=== PATIENT | male | born 1965 | race Caucasian/White ===

== ENCOUNTER 2022-11-10 17:03 | Inpatient (IN) | payer BC, OTHER ==
[2022-11-10 18:04] VITALS: BMI 25.8
[2022-11-10] MEDS ORDERED: DICYCLOMINE HCL 10 MG CAPSULE PO PRN (18:38)
[2022-11-10] MEDS ORDERED: BENZONATATE 200 MG CAPSULE PO PRN (18:38)
[2022-11-10] MEDS ORDERED: MAG HYDROX/AL HYDROX/SIMETH 30 ML UNIT-DOSE CUP PO PRN (18:38)
[2022-11-10] MEDS ORDERED: ACETAMINOPHEN 325 MG TABLET (FP) PO PRN (18:38)
[2022-11-10] MEDS ORDERED: POLYETHYLENE GLYCOL (HEALTHYLAX) 3350 17 GM PACKET PO PRN (18:38)
[2022-11-10] MEDS ORDERED: IBUPROFEN 400 MG TABLET (FP) PO PRN (18:38)
[2022-11-10] MEDS ORDERED: MAGNESIUM HYDROX 2400MG/30ML ORAL SUSPENSION 30 ML CUP PO PRN (18:38)
[2022-11-10] MEDS ORDERED: guaiFENesin 600 MG TABLET.ER (FP) PO PRN (18:38)
[2022-11-10] MEDS ORDERED: P-EPHED 60MG/TRIPROLIDI 2.5MG TABLET PO PRN (18:38)
[2022-11-10] MEDS ORDERED: IBUPROFEN 600 MG TABLET (FP) PO PRN (18:38)
[2022-11-10] MEDS ORDERED: BISMUTH SUBSALICYLATE 524 MG/30 ML PO PRN (18:38)
[2022-11-10] MEDS ORDERED: BENZOCAINE/MENTHOL (CHLORASEPTIC ) LOZENGE MM PRN (18:38)
[2022-11-10] MEDS ORDERED: LOPERAMIDE HCL 2 MG CAPSULE PO PRN (18:38)
[2022-11-10] MEDS ORDERED: ONDANSETRON *ODT* 4 MG TABLET SL PRN (18:38)
[2022-11-10] MEDS ORDERED: MELATONIN 5 MG TABLETS PO PRN (18:38)
[2022-11-10] MEDS ORDERED: chlordiazePOXIDE HCL 25 MG CAPSULE PO PRN (18:41)
[2022-11-10] MEDS ORDERED: chlordiazePOXIDE HCL 25 MG CAPSULE ONE (19:10)
[2022-11-10] MEDS ORDERED: LORazepam 2 MG/ML SDV VIAL IM ONE (21:07)
[2022-11-10] MEDS: chlordiazePOXIDE HCL 25 MG CAPSULE PO SCH (22:13)
[2022-11-10] MEDS: THIAMINE HCL 100 MG TABLET (FP) PO SCH (22:13)
[2022-11-11 05:49] VITALS: RESP 17
[2022-11-11] MEDS: chlordiazePOXIDE HCL 25 MG CAPSULE PO SCH ×4 (05:55→22:50)
[2022-11-11] MEDS ORDERED: PRENATAL VITAMINS W/ FOLIC ACID TABLET (FP) PO SCH (10:00)
[2022-11-11 12:01] LABS: CHLORIDE 95 mmol/L (98-107); SODIUM 142 mmol/L (136-145)
[2022-11-11 12:05] LABS: HEMATOCRIT 39.8 % (35.4-49); HEMOGLOBIN 13.9 GM/dL (11.7-16.9); MCH 34.2 pg (25.7-33.7); MEAN CELL VOLUME 97.9 fl (80-96); RBC 4.06 M/mm3 (4.00-5.60); RDW 13.8 % (11.9-15.9)
[2022-11-11 12:09] LABS: MEAN PLT VOLUME 7.1 fl (7.5-11.1)
[2022-11-11 12:27] LABS: ALBUMIN 3.2 g/dl (3.4-5.0); BLOOD UREA NITROGEN 12.6 mg/dL (7-18); CALCIUM 8.6 mg/dL (8.5-10.1); CO2 39 mmol/L (21-32); GLUCOSE,RANDOM 87 mg/dL (74-106)
[2022-11-11 12:30] LABS: SGPT/ALT 70 U/L (13-61)
[2022-11-11 12:31] LABS: CREATININE 0.6 mg/dL (0.55-1.3); SGOT/AST 194 U/L (15-37)
[2022-11-11 12:32] LABS: BILIRUBIN,TOTAL 2.1 mg/dL (0.2-1); TOT PROT 6.5 g/dl (6.4-8.2)
[2022-11-11 12:33] LABS: ALK PHOS 134 U/L (45-117)
[2022-11-11 12:52] VITALS: BP 154/81; PULSE 88; TEMP 96.8
[2022-11-11 12:54] LABS: ANION GAP 9 MMOL/L (8-16)
[2022-11-11] MEDS ORDERED: POTASSIUM CHLORIDE ORAL LIQUID 20 MEQ/15 ML PO ONE (13:35)
[2022-11-11 13:56] LABS: PLATELET COUNT 20 10^3/uL (134-434)
[2022-11-11] MEDS: LACTULOSE 20 GM/30 ML UDC (FOR ORAL USE ONLY) PO SCH ×3 (14:09→22:50)
[2022-11-11] MEDS ORDERED: POTASSIUM CHLORIDE ORAL LIQUID 20 MEQ/15 ML PO SCH (22:00)
[2022-11-11] MEDS: THIAMINE HCL 100 MG TABLET (FP) PO SCH (22:50)
[2022-11-12] MEDS ORDERED: chlordiazePOXIDE HCL 25 MG CAPSULE PO SCH (05:00)
[2022-11-13] MEDS ORDERED: chlordiazePOXIDE HCL 10 MG CAPSULE PO PRN
[2022-11-13] MEDS ORDERED: chlordiazePOXIDE HCL 10 MG CAPSULE PO SCH (05:00)
[2022-11-14] MEDS ORDERED: chlordiazePOXIDE HCL 10 MG CAPSULE PO SCH (05:00)
[2022-11-15] MEDS ORDERED: chlordiazePOXIDE HCL 10 MG CAPSULE PO ONE (05:00)
== END 2022-11-12 02:04 | disposition short-term general hospital (02) | DRG 775 ==
LOC: YASAS 17:03 → Y3N 19:25 → Y6N 19:35
PROVIDERS: ADMIT Allergy & Immunology; ATTEND Surgery
PROC: HZ2ZZZZ Detoxification Services for Substance Abuse Treatment (ICD-10-PCS; principal; 2022-11-10)
DX: F10.230 Alcohol dependence with withdrawal, uncomplicated (principal); F17.210 Nicotine dependence, cigarettes, uncomplicated; F10.282 Alcohol dependence with alcohol-induced sleep disorder; D69.6 Thrombocytopenia, unspecified; E87.6 Hypokalemia; R41.82 Altered mental status, unspecified
CPT/HCPCS: 36415; 80053; 82140; 82962; 85027; 86780; 87811; C9803-CS; U0003; U0005

== ENCOUNTER 2022-11-11 15:36 | Inpatient (IN) | payer BC, OTHER ==
[2022-11-11 15:47] VITALS: BMI 25.8
[2022-11-11] MEDS ORDERED: LACTATED RINGERS SOLUTION 1000 ML INFUS.BAG IV ONE (16:08)
[2022-11-11] MEDS ORDERED: KCL 10 MEQ IVPB 30 MEQ/300 ML INFUS.BAG IVPB ONE (16:30)
[2022-11-11] MEDS: KCL 10 MEQ IVPB 10 MEQ/100 ML INFUS.BAG IVPB SCH ×3 (16:50→18:22)
[2022-11-11 17:23] LABS: BASO % 0.9 % (0-2.0); EOS % 0.8 % (0-4.5); HEMATOCRIT 42.1 % (35.4-49); HEMOGLOBIN 14.9 GM/dL (11.7-16.9); LYMPH % 11.1 % (8-40); MCH 34.4 pg (25.7-33.7); MCHC 35.4 g/dl (32.0-35.9); MEAN PLT VOLUME 7.9 fl (7.5-11.1); NEUT % 75.2 % (42.8-82.8); RBC 4.34 M/mm3 (4.00-5.60); RDW 13.6 % (11.9-15.9); WHITE BLOOD COUNT 4.1 K/mm3 (4.0-10.0)
[2022-11-11 17:24] LABS: INR 1.24 (0.83-1.09); PROTHROMBIN TIME (PATIENT) 14.4 SEC (9.7-13.0)
[2022-11-11 17:26] LABS: PLATELET COUNT 24 10^3/uL (134-434)
[2022-11-11 17:27] LABS: ACTIVATED PTT 31.9 SECONDS (25.2-36.5)
[2022-11-11 18:04] LABS: CHLORIDE 96 mmol/L (98-107); SODIUM 139 mmol/L (136-145)
[2022-11-11 18:06] LABS: ALBUMIN 3.4 g/dl (3.4-5.0); ANION GAP 6 MMOL/L (8-16); CALCIUM 8.8 mg/dL (8.5-10.1); CO2 37 mmol/L (21-32); GLUCOSE,RANDOM 148 mg/dL (74-106)
[2022-11-11 18:07] LABS: MAGNESIUM 1.1 mg/dL (1.8-2.4)
[2022-11-11 18:09] LABS: CREATININE 0.6 mg/dL (0.55-1.3); PHOSPHOROUS 2.5 mg/dL (2.5-4.9); SGOT/AST 259 U/L (15-37); SGPT/ALT 82 U/L (13-61)
[2022-11-11 18:11] LABS: BILIRUBIN,TOTAL 3.1 mg/dL (0.2-1); TOT PROT 6.8 g/dl (6.4-8.2)
[2022-11-11 18:12] LABS: ALK PHOS 149 U/L (45-117)
[2022-11-11] MEDS ORDERED: MAGNESIUM SULF 50% (8.12 MEQ/2 ML-1 GM VIAL) IVPB ONE ×2 (18:32→21:11)
[2022-11-11] MEDS ORDERED: MAGNESIUM SULFATE IN WATER 2 GM/50 ML IVPB IVPB ONE (18:40)
[2022-11-11 21:22] LABS: EPI CELLS 2 /uL (0-25.1); HYALINE CASTS 0 /uL (0-3.1); PH,URINE >= 9.0 (5.0-8.0); URINE APPEARANCE CLEAR; URINE BACTERIA 5 /uL (0-1359); URINE BILIRUBIN 1+ (NEGATIVE); URINE COLOR DK YELLOW; URINE GLUCOSE (UA) NEGATIVE (NEGATIVE); URINE KETONE NEGATIVE (NEGATIVE); URINE LEUK ESTERASE NEGATIVE (NEGATIVE); URINE NITRITE NEGATIVE (NEGATIVE); URINE PROTEIN 2+ (NEGATIVE); URINE RBC 25 /uL (0-23.9); URINE UROBILINOGEN 4.0 E.U/dl mg/dL (0.2-1.0); URINE WBC 5 /uL (0-25.8)
[2022-11-11] MEDS ORDERED: FOLIC ACID 1 MG TABLET (FP) PO SCH (22:00)
[2022-11-11] MEDS ORDERED: FOLIC ACID INJECTION - 1 MG, THIAMINE HCL 100 MG, MULTIVIT INJECTION ADULT 10 ML in SOD... IVPB ONE (22:00)
[2022-11-11] MEDS ORDERED: CYANOCOBALAMIN 1,000 MCG TABLET (FP) PO SCH (22:00)
[2022-11-11] MEDS: THIAMINE HCL 200 MG/2 ML VIAL IVPB SCH (22:49)
[2022-11-11] MEDS: LORazepam 1 MG TABLET PO PRN (22:49)
[2022-11-11] MEDS: MELATONIN 5 MG TABLETS PO PRN (22:49)
[2022-11-12] MEDS: THIAMINE HCL 200 MG/2 ML VIAL IVPB SCH ×2 (10:06→19:00)
[2022-11-12] MEDS: FOLIC ACID 1 MG TABLET (FP) PO SCH (10:07)
[2022-11-12] MEDS: CYANOCOBALAMIN 1,000 MCG TABLET (FP) PO SCH (10:07)
[2022-11-12 10:23] LABS: EOS % 1.3 % (0-4.5); HEMATOCRIT 41.4 % (35.4-49); HEMOGLOBIN 14.7 GM/dL (11.7-16.9); MCH 34.4 pg (25.7-33.7); MCHC 35.5 g/dl (32.0-35.9); MEAN PLT VOLUME 7.9 fl (7.5-11.1); NEUT % 71.7 % (42.8-82.8); RBC 4.26 M/mm3 (4.00-5.60); RDW 13.5 % (11.9-15.9); WHITE BLOOD COUNT 4.4 K/mm3 (4.0-10.0)
[2022-11-12 10:33] LABS: INR 1.35 (0.83-1.09); PROTHROMBIN TIME (PATIENT) 15.6 SEC (9.7-13.0)
[2022-11-12 10:35] LABS: PLATELET COUNT 19 10^3/uL (134-434)
[2022-11-12 11:03] LABS: CHLORIDE 96 mmol/L (98-107); SODIUM 139 mmol/L (136-145)
[2022-11-12 11:05] LABS: BLOOD UREA NITROGEN 6.3 mg/dL (7-18); CALCIUM 8.9 mg/dL (8.5-10.1); CO2 34 mmol/L (21-32); GLUCOSE,RANDOM 98 mg/dL (74-106); MAGNESIUM 1.4 mg/dL (1.8-2.4)
[2022-11-12 11:06] LABS: ALBUMIN 3.3 g/dl (3.4-5.0)
[2022-11-12 11:08] LABS: BILIRUBIN,DIRECT 1.8 mg/dL (0.0-0.2); CREATININE 0.5 mg/dL (0.55-1.3); PHOSPHOROUS 2.1 mg/dL (2.5-4.9); SGOT/AST 178 U/L (15-37); SGPT/ALT 74 U/L (13-61)
[2022-11-12 11:10] LABS: BILIRUBIN,TOTAL 4.4 mg/dL (0.2-1); TOT PROT 6.8 g/dl (6.4-8.2)
[2022-11-12 11:11] LABS: ALK PHOS 150 U/L (45-117)
[2022-11-12 11:13] LABS: ANION GAP 9 MMOL/L (8-16)
[2022-11-12 11:19] LABS: ANISOCYTOSIS 0; MACROCYTOSIS 0; PLATELET ESTIMATE DECREASED
[2022-11-12] MEDS ORDERED: MAGNESIUM 2GM/50ML STERILE WATER IVPB IVPB ONE (11:23)
[2022-11-12] MEDS: POTASSIUM CHLORIDE ORAL LIQUID 20 MEQ/15 ML PO SCH ×2 (11:55→21:22)
[2022-11-12] MEDS: LORazepam 1 MG TABLET PO PRN ×2 (13:28→21:20)
[2022-11-12] MEDS: NAPH,MB-DB/K PH,MBDB POWDER PACKET PO SCH ×2 (15:26→21:22)
[2022-11-12 16:23] LABS: VENOUS BASE EXCESS 7.6 mmol/L (-2-2); VENOUS PCO2 37.3 mmHg (38-52); VENOUS PH 7.532 (7.310-7.410)
[2022-11-12] MEDS: MELATONIN 5 MG TABLETS PO PRN (21:20)
[2022-11-12] MEDS ORDERED: LORazepam 2 MG/ML SDV VIAL IVPUSH ONE (22:26)
[2022-11-13] MEDS ORDERED: HALOPERIDOL LACTATE 5 MG/ML IM ONE (00:43)
[2022-11-13] MEDS ORDERED: LORazepam 2 MG/ML SDV VIAL IVPUSH SCH (00:45)
[2022-11-13] MEDS ORDERED: LORazepam 2 MG/ML SDV VIAL IVPUSH PRN (01:23)
[2022-11-13] MEDS: THIAMINE HCL 200 MG/2 ML VIAL IVPB SCH ×2 (02:49→11:13)
[2022-11-13] MEDS ORDERED: LORazepam 2 MG/ML SDV VIAL IM ONE (04:28)
[2022-11-13] MEDS: NAPH,MB-DB/K PH,MBDB POWDER PACKET PO SCH ×3 (05:37→22:51)
[2022-11-13 08:48] LABS: INR 1.37 (0.83-1.09); PROTHROMBIN TIME (PATIENT) 15.8 SEC (9.7-13.0)
[2022-11-13 08:49] LABS: ACTIVATED PTT 32.3 SECONDS (25.2-36.5)
[2022-11-13 08:53] LABS: CALCIUM 9.1 mg/dL (8.5-10.1)
[2022-11-13 08:54] LABS: ALBUMIN 3.6 g/dl (3.4-5.0); BLOOD UREA NITROGEN 11.1 mg/dL (7-18); MAGNESIUM 1.3 mg/dL (1.8-2.4)
[2022-11-13 08:56] LABS: CALCIUM 9.1 mg/dL (8.5-10.1)
[2022-11-13 08:57] LABS: ALBUMIN 3.6 g/dl (3.4-5.0); BLOOD UREA NITROGEN 10.8 mg/dL (7-18); CREATININE 0.6 mg/dL (0.55-1.3); PHOSPHOROUS 2.7 mg/dL (2.5-4.9)
[2022-11-13 08:59] LABS: BILIRUBIN,TOTAL 3.8 mg/dL (0.2-1); TOT PROT 7.3 g/dl (6.4-8.2)
[2022-11-13 09:00] LABS: CREATININE 0.6 mg/dL (0.55-1.3)
[2022-11-13 09:01] LABS: BILIRUBIN,TOTAL 3.9 mg/dL (0.2-1); TOT PROT 7.4 g/dl (6.4-8.2)
[2022-11-13 09:09] LABS: HEMOGLOBIN 15.7 GM/dL (11.7-16.9); MCH 34.8 pg (25.7-33.7); MCHC 35.7 g/dl (32.0-35.9); MEAN CELL VOLUME 97.5 fl (80-96); MEAN PLT VOLUME 8.7 fl (7.5-11.1); RBC 4.52 M/mm3 (4.00-5.60); RDW 13.5 % (11.9-15.9); WHITE BLOOD COUNT 6.6 K/mm3 (4.0-10.0)
[2022-11-13 09:22] LABS: PLATELET COUNT 26 10^3/uL (134-434)
[2022-11-13] MEDS ORDERED: MAGNESIUM SULF 50% (8.12 MEQ/2 ML-1 GM VIAL) IVPB ONE ×3 (10:30→15:00)
[2022-11-13] MEDS ORDERED: POTASSIUM CHLORIDE TABS 20 MEQ TABLET.ER (FP) PO SCH (10:30)
[2022-11-13] MEDS: FOLIC ACID 1 MG TABLET (FP) PO SCH (11:13)
[2022-11-13] MEDS: POTASSIUM CHLORIDE ORAL LIQUID 20 MEQ/15 ML PO SCH ×2 (11:15→22:50)
[2022-11-13] MEDS: CYANOCOBALAMIN 1,000 MCG TABLET (FP) PO SCH (13:05)
[2022-11-13] MEDS ORDERED: LORazepam 2 MG/ML SDV VIAL IVPUSH ONE ×2 (16:11→22:04)
[2022-11-13] MEDS: MELATONIN 5 MG TABLETS PO PRN (22:55)
[2022-11-14] MEDS: THIAMINE HCL 200 MG/2 ML VIAL IVPB SCH ×2 (02:55→09:11)
[2022-11-14] MEDS: NAPH,MB-DB/K PH,MBDB POWDER PACKET PO SCH ×3 (06:22→22:26)
[2022-11-14 08:50] LABS: INR 1.32 (0.83-1.09); PROTHROMBIN TIME (PATIENT) 15.3 SEC (9.7-13.0)
[2022-11-14 08:52] LABS: HEMATOCRIT 42.5 % (35.4-49); HEMOGLOBIN 14.6 GM/dL (11.7-16.9); MCH 33.7 pg (25.7-33.7); MCHC 34.4 g/dl (32.0-35.9); MEAN CELL VOLUME 98.2 fl (80-96); MEAN PLT VOLUME 8.1 fl (7.5-11.1); RBC 4.32 M/mm3 (4.00-5.60); RDW 13.7 % (11.9-15.9); WHITE BLOOD COUNT 6.8 K/mm3 (4.0-10.0)
[2022-11-14 09:09] LABS: CALCIUM 9.1 mg/dL (8.5-10.1)
[2022-11-14 09:10] LABS: ALBUMIN 3.4 g/dl (3.4-5.0); BLOOD UREA NITROGEN 13.6 mg/dL (7-18); MAGNESIUM 1.9 mg/dL (1.8-2.4)
[2022-11-14] MEDS: POTASSIUM CHLORIDE ORAL LIQUID 20 MEQ/15 ML PO SCH ×2 (09:10→22:26)
[2022-11-14] MEDS: FOLIC ACID 1 MG TABLET (FP) PO SCH (09:11)
[2022-11-14] MEDS: CYANOCOBALAMIN 1,000 MCG TABLET (FP) PO SCH (09:11)
[2022-11-14 09:13] LABS: CREATININE 0.5 mg/dL (0.55-1.3)
[2022-11-14 09:14] LABS: BILIRUBIN,TOTAL 3.2 mg/dL (0.2-1); TOT PROT 6.9 g/dl (6.4-8.2)
[2022-11-14 09:20] LABS: PLATELET COUNT 36 10^3/uL (134-434)
[2022-11-14 18:22] LABS: HEMATOCRIT 42.5 % (35.4-49); HEMOGLOBIN 14.4 GM/dL (11.7-16.9); MCH 33.2 pg (25.7-33.7); MCHC 33.8 g/dl (32.0-35.9); MEAN CELL VOLUME 98.4 fl (80-96); MEAN PLT VOLUME 8.4 fl (7.5-11.1); PLATELET COUNT 47 10^3/uL (134-434); RBC 4.32 M/mm3 (4.00-5.60); RDW 13.9 % (11.9-15.9); WHITE BLOOD COUNT 6.8 K/mm3 (4.0-10.0)
[2022-11-14] MEDS ORDERED: LORazepam 2 MG/ML SDV VIAL IVPUSH ONE (22:09)
[2022-11-14] MEDS ORDERED: HALOPERIDOL LACTATE 5 MG/ML IM ONE (23:26)
[2022-11-15] MEDS ORDERED: LORazepam 2 MG/ML SDV VIAL IVPUSH ONE (01:14)
[2022-11-15] MEDS: NAPH,MB-DB/K PH,MBDB POWDER PACKET PO SCH ×3 (06:07→21:25)
[2022-11-15] MEDS ORDERED: LORazepam 1 MG TABLET PO PRN (07:28)
[2022-11-15 09:17] LABS: HEMATOCRIT 42.1 % (35.4-49); HEMOGLOBIN 14.7 GM/dL (11.7-16.9); MCH 34.1 pg (25.7-33.7); MCHC 34.9 g/dl (32.0-35.9); MEAN CELL VOLUME 97.8 fl (80-96); MEAN PLT VOLUME 7.8 fl (7.5-11.1); PLATELET COUNT 53 10^3/uL (134-434); RBC 4.31 M/mm3 (4.00-5.60); RDW 13.6 % (11.9-15.9); WHITE BLOOD COUNT 6.2 K/mm3 (4.0-10.0)
[2022-11-15 09:23] LABS: INR 1.36 (0.83-1.09); PROTHROMBIN TIME (PATIENT) 15.7 SEC (9.7-13.0)
[2022-11-15 09:26] LABS: ACTIVATED PTT 32.9 SECONDS (25.2-36.5)
[2022-11-15 09:37] LABS: ALBUMIN 3.3 g/dl (3.4-5.0); BLOOD UREA NITROGEN 15.2 mg/dL (7-18)
[2022-11-15 09:40] LABS: CREATININE 0.5 mg/dL (0.55-1.3); MAGNESIUM 1.5 mg/dL (1.8-2.4); PHOSPHOROUS 3.4 mg/dL (2.5-4.9)
[2022-11-15 09:42] LABS: BILIRUBIN,TOTAL 3.5 mg/dL (0.2-1)
[2022-11-15] MEDS: POTASSIUM CHLORIDE ORAL LIQUID 20 MEQ/15 ML PO SCH ×2 (10:02→21:25)
[2022-11-15] MEDS: CYANOCOBALAMIN 1,000 MCG TABLET (FP) PO SCH (10:02)
[2022-11-15] MEDS: FOLIC ACID 1 MG TABLET (FP) PO SCH (10:02)
[2022-11-15] MEDS ORDERED: MAGNESIUM SULF 50% (8.12 MEQ/2 ML-1 GM VIAL) IVPB ONE (10:19)
[2022-11-15] MEDS: THIAMINE HCL 200 MG/2 ML VIAL IVPB SCH ×3 (10:25→22:40)
[2022-11-16] MEDS: NAPH,MB-DB/K PH,MBDB POWDER PACKET PO SCH ×3 (05:34→21:30)
[2022-11-16 08:37] LABS: INR 1.33 (0.83-1.09); PROTHROMBIN TIME (PATIENT) 15.4 SEC (9.7-13.0)
[2022-11-16 08:38] LABS: HEMATOCRIT 40.2 % (35.4-49); HEMOGLOBIN 14.2 GM/dL (11.7-16.9); MCH 34.5 pg (25.7-33.7); MCHC 35.4 g/dl (32.0-35.9); MEAN CELL VOLUME 97.4 fl (80-96); MEAN PLT VOLUME 8.2 fl (7.5-11.1); PLATELET COUNT 70 10^3/uL (134-434); RBC 4.12 M/mm3 (4.00-5.60); RDW 13.8 % (11.9-15.9); WHITE BLOOD COUNT 5.9 K/mm3 (4.0-10.0)
[2022-11-16] MEDS: THIAMINE HCL 200 MG/2 ML VIAL IVPB SCH (09:22)
[2022-11-16] MEDS: POTASSIUM CHLORIDE ORAL LIQUID 20 MEQ/15 ML PO SCH ×2 (09:24→21:30)
[2022-11-16] MEDS: FOLIC ACID 1 MG TABLET (FP) PO SCH (09:24)
[2022-11-16] MEDS: CYANOCOBALAMIN 1,000 MCG TABLET (FP) PO SCH (09:24)
[2022-11-16 09:29] LABS: CALCIUM 8.6 mg/dL (8.5-10.1)
[2022-11-16 09:30] LABS: ALBUMIN 3.2 g/dl (3.4-5.0); BLOOD UREA NITROGEN 11.8 mg/dL (7-18); MAGNESIUM 1.8 mg/dL (1.8-2.4)
[2022-11-16 09:33] LABS: CREATININE 0.6 mg/dL (0.55-1.3); PHOSPHOROUS 4.1 mg/dL (2.5-4.9)
[2022-11-16 09:35] LABS: TOT PROT 6.7 g/dl (6.4-8.2)
[2022-11-16] MEDS ORDERED: LORazepam 0.5 MG TABLET PO PRN (13:29)
[2022-11-17] MEDS ORDERED: LORazepam 1 MG TABLET PO SCH (05:00)
[2022-11-17] MEDS: NAPH,MB-DB/K PH,MBDB POWDER PACKET PO SCH ×3 (06:37→21:49)
[2022-11-17] MEDS: FOLIC ACID 1 MG TABLET (FP) PO SCH (09:19)
[2022-11-17] MEDS: POTASSIUM CHLORIDE ORAL LIQUID 20 MEQ/15 ML PO SCH ×2 (09:19→21:48)
[2022-11-17] MEDS: THIAMINE HCL 200 MG/2 ML VIAL IVPB SCH (09:19)
[2022-11-17] MEDS: CYANOCOBALAMIN 1,000 MCG TABLET (FP) PO SCH (09:19)
[2022-11-17 09:44] LABS: HEMATOCRIT 41.5 % (35.4-49); HEMOGLOBIN 14.3 GM/dL (11.7-16.9); MCHC 34.5 g/dl (32.0-35.9); MEAN CELL VOLUME 98.5 fl (80-96); MEAN PLT VOLUME 8.3 fl (7.5-11.1); PLATELET COUNT 96 10^3/uL (134-434); RBC 4.22 M/mm3 (4.00-5.60); RDW 13.3 % (11.9-15.9); WHITE BLOOD COUNT 5.4 K/mm3 (4.0-10.0)
[2022-11-17 10:02] LABS: CALCIUM 8.9 mg/dL (8.5-10.1)
[2022-11-17 10:03] LABS: ALBUMIN 3.2 g/dl (3.4-5.0); BLOOD UREA NITROGEN 13.3 mg/dL (7-18); MAGNESIUM 1.8 mg/dL (1.8-2.4)
[2022-11-17 10:06] LABS: CREATININE 0.6 mg/dL (0.55-1.3); PHOSPHOROUS 3.7 mg/dL (2.5-4.9)
[2022-11-17 10:08] LABS: BILIRUBIN,TOTAL 2.8 mg/dL (0.2-1); TOT PROT 6.8 g/dl (6.4-8.2)
[2022-11-17 10:23] LABS: ANISOCYTOSIS 0; HELMET CELLS 0; HOWELL-JOLLY BODIES 0; MACROCYTOSIS 0; OVALOCYTE 0; ROULEAU 0; SICKELED CELLS 0; TARGET CELLS 0; TEAR DROP CELLS 0; TOXIC GRANULATION 0
[2022-11-17] MEDS: MELATONIN 5 MG TABLETS PO PRN (21:49)
[2022-11-18] MEDS ORDERED: LORazepam 0.5 MG TABLET PO PRN
[2022-11-18] MEDS ORDERED: LORazepam 0.5 MG TABLET PO SCH (05:00)
[2022-11-18] MEDS: NAPH,MB-DB/K PH,MBDB POWDER PACKET PO SCH ×3 (06:14→22:02)
[2022-11-18 09:29] LABS: HEMATOCRIT 39.2 % (35.4-49); HEMOGLOBIN 13.9 GM/dL (11.7-16.9); MCH 34.7 pg (25.7-33.7); MCHC 35.4 g/dl (32.0-35.9); MEAN PLT VOLUME 7.7 fl (7.5-11.1); PLATELET COUNT 117 10^3/uL (134-434); RDW 12.9 % (11.9-15.9); WHITE BLOOD COUNT 6.5 K/mm3 (4.0-10.0)
[2022-11-18 09:47] LABS: CALCIUM 9.3 mg/dL (8.5-10.1); MAGNESIUM 1.7 mg/dL (1.8-2.4)
[2022-11-18 09:48] LABS: ALBUMIN 3.1 g/dl (3.4-5.0)
[2022-11-18 09:50] LABS: BILIRUBIN,TOTAL 2.6 mg/dL (0.2-1); CREATININE 0.7 mg/dL (0.55-1.3); TOT PROT 6.7 g/dl (6.4-8.2)
[2022-11-18] MEDS: FOLIC ACID 1 MG TABLET (FP) PO SCH (10:37)
[2022-11-18] MEDS: THIAMINE HCL 200 MG/2 ML VIAL IVPB SCH (10:37)
[2022-11-18] MEDS: CYANOCOBALAMIN 1,000 MCG TABLET (FP) PO SCH (10:38)
[2022-11-18] MEDS ORDERED: MAGNESIUM SULF 50% (8.12 MEQ/2 ML-1 GM VIAL) IVPB ONE (12:34)
[2022-11-18] MEDS ORDERED: ACETAMINOPHEN 325 MG TABLET (FP) PO PRN ×2 (12:42→14:25)
[2022-11-18 12:44] LABS: ANISOCYTOSIS 0; MACROCYTOSIS 0; TEAR DROP CELLS 1+; TOXIC GRANULATION 2+
[2022-11-18] MEDS: MELATONIN 5 MG TABLETS PO PRN (22:02)
[2022-11-19 02:27] VITALS: RESP 18
[2022-11-19] MEDS ORDERED: LORazepam 0.5 MG TABLET PO ONE (05:00)
[2022-11-19] MEDS: NAPH,MB-DB/K PH,MBDB POWDER PACKET PO SCH ×2 (06:24→13:13)
[2022-11-19 10:02] LABS: HEMATOCRIT 41.4 % (35.4-49); HEMOGLOBIN 14.8 GM/dL (11.7-16.9); MCH 35.3 pg (25.7-33.7); MCHC 35.7 g/dl (32.0-35.9); MEAN CELL VOLUME 98.9 fl (80-96); MEAN PLT VOLUME 8.8 fl (7.5-11.1); PLATELET COUNT 168 10^3/uL (134-434); RBC 4.18 M/mm3 (4.00-5.60); WHITE BLOOD COUNT 7.8 K/mm3 (4.0-10.0)
[2022-11-19 10:13] LABS: CALCIUM 8.9 mg/dL (8.5-10.1)
[2022-11-19 10:14] LABS: ALBUMIN 3.3 g/dl (3.4-5.0); BLOOD UREA NITROGEN 14.1 mg/dL (7-18); MAGNESIUM 1.7 mg/dL (1.8-2.4)
[2022-11-19 10:17] LABS: CREATININE 0.6 mg/dL (0.55-1.3); PHOSPHOROUS 4.2 mg/dL (2.5-4.9)
[2022-11-19] MEDS: CYANOCOBALAMIN 1,000 MCG TABLET (FP) PO SCH (10:17)
[2022-11-19] MEDS: FOLIC ACID 1 MG TABLET (FP) PO SCH (10:17)
[2022-11-19 10:18] LABS: TOT PROT 7.4 g/dl (6.4-8.2)
[2022-11-19] MEDS: THIAMINE HCL 200 MG/2 ML VIAL IVPB SCH (10:18)
[2022-11-19 10:43] LABS: ANISOCYTOSIS 0; HELMET CELLS 0; HOWELL-JOLLY BODIES 0; MACROCYTOSIS 0; OVALOCYTE 0; ROULEAU 0; SICKELED CELLS 0; TARGET CELLS 0; TEAR DROP CELLS 0; TOXIC GRANULATION 0
[2022-11-19] MEDS ORDERED: IBUPROFEN 600 MG TABLET (FP) PO ONE (12:40)
[2022-11-19] MEDS ORDERED: LIDOCAINE 5% TOPICAL PATCH TP SCH (12:45)
[2022-11-19 14:19] VITALS: BP 122/69; PULSE 78; TEMP 98.2
[2022-11-19] MEDS ORDERED: LIDOCAINE PATCH REMOVAL MC SCH (22:00)
== END 2022-11-19 14:34 | disposition home or self-care (01) | DRG 641 ==
LOC: JER 15:36 → INTOOBSV 16:33 → JERBED 16:33 → J6S 21:34 → OBSVTOIN 11-13 09:41
PROVIDERS: ADMIT Internal Medicine; ATTEND Internal Medicine
DX: E51.2 Wernicke's encephalopathy (principal); F10.29 Alcohol dependence with unspecified alcohol-induced disorder; E46 Unspecified protein-calorie malnutrition; E87.6 Hypokalemia; E83.42 Hypomagnesemia; E83.39 Other disorders of phosphorus metabolism; F17.210 Nicotine dependence, cigarettes, uncomplicated; D69.6 Thrombocytopenia, unspecified; K70.10 Alcoholic hepatitis without ascites; Z68.25 Body mass index [BMI] 25.0-25.9, adult; R94.5 Abnormal results of liver function studies
CPT/HCPCS: 0241U-QW; 36415; 70450-TC; 71045-TC-FY; 73564-TC-RT-FY; 76705-TC; 80053; 80307; 81003; 82140; 82248; 82607; 82747; 82803; 82962; 83010; 83615; 83735; 84100; 84443; 85014; 85025; 85027; 85045; 85379; 85384; 85610; 85730; 86704; 86709; 86803; 87086; 87340; 87517; 93005; 93010; 97116-GP; 97161-GP; 99285-25; G0378